=== PATIENT | male | born 1950 | race African-American/Black ===

== ENCOUNTER 2016-09-02 12:52 | Emergency (ER) | payer MEDICARE, OTHER ==
[~2016-09-02] VITALS: Ht 177.8 cm; Wt 99.8 kg
[~2016-09-02 12:52] MED LIST: ADVAIR 100-501 EACH INH; ADVAIR 250-501 EACH INH; ALBUTEROL SULF8.5 GM INH; AMBIEN5 MG ORAL; ANUSOL-HC25 MG RC; ASPIRIN-LOW81 MG PO; AVODART; AZITHROMYCIN600 MG PO; BACTRIM DS TAB1 EAC1 ORAL; BACTRIM-DS1 EA PO; BENTYL10 MG ORAL; BISACODYL10 M1 RC; CARVEDILOL3.125 MG PO; CLOBETASOL EMOL15 GM TP; COLACE100 MG ORAL; COREG6.25 MG ORAL; COZAAR50 MG ORAL; CYCLOBENZAPRINE10 MG ORAL; DIOVAN HCT 1601 EACH PO; DIOVAN160 MG PO; DIPHENOXYLATE-1 EACH PO; DOCUSIL100 M1 PO; DOXAZOSIN MESYLA1 MG ORAL; DURAGESIC1 E3 TD; FLAGYL500 MG ORAL; FLOMAX0.4 MG PO; FONDAPARIN7.5 MG/0.6 SQ; FUROSEMIDE20 M1 ORAL; GABAPENTIN300 MG PO; GABAPENTIN800 MG ORAL; HYDRALAZINE HCL25 M1 ORAL; HYTRIN1 MG PO; IBUPROFEN600 MG ORAL; ISENTRESS400 MG ORAL; ISENTRESS400 MG PO; LEVAQUIN500 MG ORAL; LEXAPRO10 MG PO; LINZESS145 MCG PO; METOPROLOL SUCC50 MG ORAL; MIRALAX17 G2 ORAL; MULTIVITAMINS1 EAC2 PO; NEUPOGEN300 MCG/0. IJ; NEURONTIN300 MG PO; NEXIUM40 MG PO; NORCO 5-325 TA1 EAC1 ORAL; NORCO 5-325 TA1 EACH ORAL; NORVASC10 MG PO; NORVIR100 MG ORAL; NORVIR100 MG PO; NYSTATIN100000 UN1 ORAL; ONDANSETRON ODT4 MG ORAL; POLYSPORIN OI28.3 GM TP; PREZCOBIX 8001 EACH PO; PREZISTA400 MG ORAL; PREZISTA400 MG PO; PREZISTA600 MG PO; PROTONIX40 M2 GT; PROTONIX40 MG ORAL; SEROQUEL200 MG ORAL; SEROQUEL300 MG PO; SUCRALFATE1 GM ORAL; SUCRALFATE1 GM PO; SYMBICORT 1601 PUFFS INH; TAMSULOSIN HCL0.4 MG ORAL; TIVICAY50 MG ORAL; TORADOL30 MG IM; TRAZODONE HCL100 MG ORAL; TRAZODONE HCL100 MG PO; TRUVADA1 TAB ORAL; TRUVADA1 TAB PO; VALTREX1000 MG PO; VANCOMYCIN1 GM/2502 IVPB; VICODIN ES 7.51 EACH PO; ZANTAC150 MG ORAL; ZYLOPRIM300 MG PO
[2016-09-02 13:04] VITALS: BP 148/98
[2016-09-02] MEDS ORDERED: HYDROmorphone 1mg/ml Carpuject IVP ONE ×2 (13:15→15:15)
[2016-09-02 13:38] LABS: MEAN CORPUSCULAR HEMOGLOBIN 30.2 PG (27.0-31.0); MEAN CORPUSCULAR HGB CONC 31.8 G/DL (32.0-36.0); MEAN CORPUSCULAR VOLUME 95 FL (80-99); MEAN PLATELET VOLUME 8.4 FL (6.5-10.1); PLATELET COUNT 51 K/UL (150-450); RED CELL DISTRIBUTION WIDTH 14.3 % (11.6-14.8); WHITE BLOOD COUNT 3.2 K/UL (4.8-10.8)
[2016-09-02 14:08] LABS: ANISOCYTOSIS 1+; BAND NEUTROPHILS % (MANUAL) 0 % (0-8); BASOPHILS % (MANUAL) 1 % (0-2); EOSINOPHILS % (MANUAL) 1 % (0-3); LYMPHOCYTES % (MANUAL) 38 % (20-45); NEUTROPHILS % (MANUAL) 53 % (45-75); PLATELET ESTIMATE DECREASED; TOTAL CELLS COUNTED 100
[2016-09-02 14:09] LABS: PLATELET MORPHOLOGY NORMAL
[2016-09-02] MEDS ORDERED: SULFAMETHOXAZO473 ML ORAL (14:11)
[2016-09-02] MEDS ORDERED: CHLORPROMAZINE25 MG PO (14:11)
[2016-09-02 14:18] LABS: APPEARANCE,URINE CLEAR; KETONES,URINE NEGATIVE (NEGATIVE); LEUKOCYTE ESTERASE ,URINE 1+ (NEGATIVE); NITRITE,URINE NEGATIVE (NEGATIVE); PH,URINE 6 (4.5-8.0); PROTEIN,URINE 3+ (NEGATIVE); UROBILINOGEN,URINE 1 MG/DL (0.0-1.0)
[2016-09-02 14:32] LABS: BACTERIA,URINE FEW /HPF; MUCUS,URINE OCCASIONAL /LPF (NONE/OCC); RBC,URINE 0-2 /HPF (0 - 0); SQUAMOUS EPITHELIAL CELL,UR FEW /LPF (NONE/OCC)
--- NOTE | 2016-09-02 14:35 | Emergency Room Report ---
History of Present Illness General Chief Complaint: Abdominal Pain Source: Patient (SHEY POLLARD M.D.) Present Illness HPI 66-year-old male presents ED complaining of abdominal pain. States having pain for 2 days. States that he fell twice and landed on his abdomen. Notes having history of abdominal pain for 5 years. Does not know why he is having pain. Pain is sharp. 10 out of 10. Diffuse. No other aggravating relieving factors. Notes nausea and vomiting. Denies chest pain or shortness of breath. PMD is Dr. Jackson. Denies any other associated symptoms (SHEY POLLARD M.D.) Allergies: Coded Allergies: No Known Allergies (Verified , 10/03/08) Patient History Past Medical History: HTN, seizures Past Surgical History: none Pertinent Family History: none Social History: Denies: alcohol use, drug use, smoking Immunizations: UTD Reviewed Nursing Documentation: PMH: Agreed, PSxH: Agreed (SHEY POLLARD M.D.) Nursing Documentation-PMH Past Medical History: No History, Except For Hx Cardiac Problems: Yes Hx Hypertension: Yes Hx Asthma: Yes Hx COPD: No Hx Cancer: No Hx Gastrointestinal Problems: Yes Hx Neurological Problems: No Hx Cerebrovascular Accident: No Hx Seizures: Yes Hx Peripheral Neuropathy: Yes (SHEY POLLARD M.D.) Review of Systems All Other Systems: negative except mentioned in HPI (SHEY POLLARD M.D.) Physical Exam Vital Signs Date Time Temp Pulse Resp B/P Pulse Ox O2 Delivery O2 Flow Rate FiO2 09/02/16 12:53 97.7 94 148/120 96 Room Air 09/02/16 13:04 20 Sp02 EP Interpretation: reviewed, normal General Appearance: alert, GCS 15, non-toxic, mild distress Head: normocephalic, atraumatic Eyes: bilateral eye PERRL, bilateral eye normal inspection ENT: hearing grossly normal, normal pharynx, no angioedema, normal voice Neck: full range of motion, supple/symm/no masses Respiratory: chest non-tender, lungs clear, normal breath sounds, speaking full sentences Cardiovascular #1: regular rate, rhythm, no edema Cardiovascular #2: 2+ carotid (R), 2+ carotid (L), 2+ radial (R), 2+ radial (L) , 2+ dorsalis pedis (R), 2+ dorsalis pedis (L) Gastrointestinal: normal bowel sounds, soft, non-distended, no guarding, no rebound, tenderness Rectal: deferred Genitourinary: normal inspection, no CVA tenderness Musculoskeletal: back normal, gait/station normal, normal range of motion, non- tender Neurologic: alert, oriented x3, responsive, motor strength/tone normal, sensory intact, speech normal Psychiatric: judgement/insight normal, memory normal, mood/affect normal, no suicidal/homicidal ideation Reflexes: 3+ bicep (R), 3+ bicep (L), 3+ tricep (R), 3+ tricep (L), 3+ knee (R) , 3+ knee (L) Skin: normal color, no rash, warm/dry, well hydrated Lymphatic: no adenopathy (SHEY POLLARD M.D.) Medical Decision Making Diagnostic Impression: Primary Impression: narcotic seeking behavior Additional Impressions: Abdominal pain Hypertension Qualified Codes: I10 - Essential (primary) hypertension HIV (human immunodeficiency virus infection) ER Course Please see the above note. Patient about to go to CT and requested more pain medicine. Abdomen soft. Dilaudid repeated. Improved. Abd soft. See CT results below. Patient hypertensive. Treated with IV hydralazine and clonidine. BP better. Patient stable for outpatient observation and treatment. Laboratory Tests Test 09/02/16 13:25 09/02/16 14:00 09/02/16 14:25 White Blood Count 3.2 K/UL (4.8-10.8) L Red Blood Count 6.00 M/UL (4.70-6.10) Hemoglobin 18.1 G/DL (14.2-18.0) *H Hematocrit 56.8 % (42.0-52.0) H Mean Corpuscular Volume 95 FL (80-99) Mean Corpuscular Hemoglobin 30.2 PG (27.0-31.0) Mean Corpuscular Hemoglobin Concent 31.8 G/DL (32.0-36.0) L Red Cell Distribution Width 14.3 % (11.6-14.8) Platelet Count 51 K/UL (150-450) L Mean Platelet Volume 8.4 FL (6.5-10.1) Neutrophils (%) (Auto) % (45.0-75.0) Lymphocytes (%) (Auto) % (20.0-45.0) Monocytes (%) (Auto) % (1.0-10.0) Eosinophils (%) (Auto) % (0.0-3.0) Basophils (%) (Auto) % (0.0-2.0) Differential Total Cells Counted 100 Neutrophils % (Manual) 53 % (45-75) Lymphocytes % (Manual) 38 % (20-45) Monocytes % (Manual) 7 % (1-10) Eosinophils % (Manual) 1 % (0-3) Basophils % (Manual) 1 % (0-2) Band Neutrophils 0 % (0-8) Platelet Estimate Decreased L Platelet Morphology Normal Anisocytosis 1+ Urine Color Yellow Urine Appearance Clear Urine pH 6 (4.5-8.0) Urine Specific [place] 1.015 (1.005-1.035) Urine Protein 3+ (NEGATIVE) H Urine Glucose (UA) Negative (NEGATIVE) Urine Ketones Negative (NEGATIVE) Urine Occult Blood Negative (NEGATIVE) Urine Nitrite Negative (NEGATIVE) Urine Bilirubin Negative (NEGATIVE) Urine Urobilinogen 1 MG/DL (0.0-1.0) H Urine Leukocyte Esterase 1+ (NEGATIVE) H Urine RBC 0-2 /HPF (0 - 0) H Urine WBC 2-4 /HPF (0 - 0) Urine Squamous Epithelial Cells Few /LPF (NONE/OCC) Urine Bacteria Few /HPF (NONE) Urine Mucus Occasional /LPF Sodium Level 139 mEQ/L (135-145) Potassium Level 3.6 mEQ/L (3.4-4.9) Chloride Level 97 mEQ/L (98-107) L Carbon Dioxide Level 27 mEQ/L (20-30) Anion Gap 15 (5-15) Blood Urea Nitrogen 8 mg/dL (7-23) Creatinine 1.0 mg/dL (0.7-1.2) Estimate Glomerular Filtration Rate > 60 mL/min (>60) Glucose Level 109 mg/dL (74-106) H Calcium Level 8.6 mg/dL (8.6-10.2) Total Bilirubin 0.6 mg/dL (0.0-1.2) Aspartate Amino Transferase (AST) 19 U/L (5-40) Alanine Aminotransferase (ALT) 15 U/L (3-41) Alkaline Phosphatase 69 U/L (40-129) Total Protein 6.3 g/dL (6.6-8.7) L Albumin 3.5 g/dL (3.5-5.2) Globulin 2.8 g/dL Albumin/Globulin Ratio 1.2 (1.0-2.7) Lipase 25 U/L (< 60) (Wesley Reis M.D.) CT/MRI/US Diagnostic Results CT/MRI/US Diagnostic Results : Imaging Test Ordered: CT abdomen and pelivs Impression Impression: No acute abnormality demonstrated 15 mm left lower lobe lung mass. This is identical in size to the prior study of 12/26/2015, earlier studies from [id number] demonstrate some growth. Therefore, continued monitoring of this at short intervals is still recommended Borderline splenomegaly, also previously reported Postsurgical changes, including prior cholecystectomy, anterior abdominal wall hernia repair Thickwalled cyst within the perineum anterior to the anus, also previously reported and unchanged Other findings as noted, including colonic diverticulosis, bilateral renal cysts (Wesley Reis M.D.) Last Vital Signs Date Time Temp Pulse Resp B/P Pulse Ox O2 Delivery O2 Flow Rate FiO2 09/02/16 13:04 97.7 88 20 148/98 96 Room Air (SHEY POLLARD M.D.) Last Vital Signs Date Time Temp Pulse Resp B/P Pulse Ox O2 Delivery O2 Flow Rate FiO2 09/02/16 17:46 97.5 89 20 138/89 98 Room Air Status: improved (Wesley Reis M.D.) Disposition: HOME, SELF-CARE Condition: Improved Referrals: NOT CHOSEN DON/,REFERRING (PCP) SHEY POLLARD M.D. Sep 02, 2016 14:35 Wesley Reis M.D. Sep 02, 2016 15:08
[2016-09-02 14:55] LABS: ALANINE AMINOTRANSFERASE 15 U/L (3-41); ALBUMIN/GLOBULIN RATIO 1.2 (1.0-2.7); ANION GAP 15 (5-15); ASPARTATE AMINO TRANSFERASE 19 U/L (5-40); CALCIUM 8.6 mg/dL (8.6-10.2); CARBON DIOXIDE 27 mEQ/L (20-30); CHLORIDE 97 mEQ/L (98-107); GLOMERULAR FILTRATION RATE > 60 mL/min (>60); HEMOLYSIS 16; LIPASE 25 U/L (< 60); POTASSIUM 3.6 mEQ/L (3.4-4.9); SODIUM 139 mEQ/L (135-145); TOTAL PROTEIN 6.3 g/dL (6.6-8.7)
[2016-09-02 15:25] VITALS: BP 168/125
--- NOTE | 2016-09-02 16:12 | Diagnostic Imaging Report ---
Clinical Indication: Abdominal pain Technique: No oral contrast utilized, per emergency room physician request IV administration nonionic contrast. Venous phase spiral acquisition obtained through the abdomen and pelvis. Multiplanar reconstructions were generated. Total dose length product 1108 mGycm. CTDIvol(s) 19 mGy Comparison: 12/26/2015 Findings: Normal appendix. There is colonic diverticulosis. No evidence of diverticulitis. No small bowel distention. Distal esophagus, stomach, duodenum are unremarkable. There is again demonstrated evidence of prior anterior abdominal wall hernia mesh repair with fixation anchors in place. There is diastases of the rectus abdominis tendon. No free or loculated intraperitoneal air or fluid. There is evidence of prior cholecystectomy. No focal hepatic abnormality. No evidence of biliary ductal dilatation. The pancreas is unremarkable. The spleen is borderline enlarged, measuring 13.3 cm long axis dimension. There are 2 accessory splenules incidentally noted. The adrenals are unremarkable. The right kidney demonstrates a 1 cm interpolar region cyst, also evident previously. The left kidney demonstrates a 2 cm interpolar region cyst, also evident previously. No renal or ureteral calculi, hydronephrosis, or hydroureter. The bladder is unremarkable. Seminal vesicles and prostate are unremarkable. No pelvic mass or adenopathy. A cyst with a somewhat thick wall is seen in the perineum anterior to the anus. This measures 3.8 x 3.8 cm, was evident previously and is unchanged in size. Again demonstrated is a well-circumscribed 15 mm mass in the posteromedial left lower lobe abutting the pleural surface. This is unchanged in size and appearance from the prior study. The included lung bases are otherwise clear. There is degenerative lumbar spondylosis. Impression: No acute abnormality demonstrated 15 mm left lower lobe lung mass. This is identical in size to the prior study of 12/26/2015, earlier studies from [id number] demonstrate some growth. Therefore, continued monitoring of this at short intervals is still recommended Borderline splenomegaly, also previously reported Postsurgical changes, including prior cholecystectomy, anterior abdominal wall hernia repair Thickwalled cyst within the perineum anterior to the anus, also previously reported and unchanged Other findings as noted, including colonic diverticulosis, bilateral renal cysts The CT scanner at [facility] is accredited by the [employer] and the scans are performed using protocols designed to limit radiation exposure to as low as reasonably achievable to attain images of sufficient resolution adequate for diagnostic evaluation.
[2016-09-02 17:46] VITALS: BP 138/89
== END 2016-09-02 17:47 | disposition home or self-care (01) ==
LOC: EDBD 12:52 → EMR 13:35
DX: Z76.5 Malingerer [conscious simulation] (principal); R10.9 Unspecified abdominal pain; I10 Essential (primary) hypertension; B20 Human immunodeficiency virus [HIV] disease; K57.30 Diverticulosis of large intestine without perforation or abscess without bleeding; J45.909 Unspecified asthma, uncomplicated; N28.1 Cyst of kidney, acquired; R91.8 Other nonspecific abnormal finding of lung field; Z90.49 Acquired absence of other specified parts of digestive tract
CPT/HCPCS: 36415; 74177; 80053; 81003; 83690; 85007; 85025; 96374; 96375; 99284; J0360; J1170; J2405; J7040; Q9967

== ENCOUNTER 2016-11-07 20:03 | Emergency (ER) | payer MEDICARE, OTHER ==
[~2016-11-07] VITALS: Ht 177.8 cm; Wt 97.1 kg
[~2016-11-07 20:03] MED LIST changes: +CHLORPROMAZINE25 MG PO; +SULFAMETHOXAZO473 ML ORAL
[2016-11-07 20:05] VITALS: BP 162/114
[2016-11-07] MEDS ORDERED: Dicyclomine HCl 10mg/5ml oral soln ORAL ONE (20:30)
[2016-11-07] MEDS ORDERED: Famotidine 20 MG/ 2ML VIAL IVP ONE (20:30)
[2016-11-07 20:52] LABS: BASOPHILS % (AUTO) 2.3 % (0.0-2.0); EOSINOPHILS % (AUTO) 0.1 % (0.0-3.0); MEAN CORPUSCULAR HEMOGLOBIN 32.2 PG (27.0-31.0); MEAN CORPUSCULAR HGB CONC 32.3 G/DL (32.0-36.0); MEAN CORPUSCULAR VOLUME 100 FL (80-99); MEAN PLATELET VOLUME 7.6 FL (6.5-10.1); MONOCYTES % (AUTO) 14.2 % (1.0-10.0); NEUTROPHILS % (AUTO) 48.5 % (45.0-75.0); PLATELET COUNT 115 K/UL (150-450); RED BLOOD COUNT 6.12 M/UL (4.70-6.10); WHITE BLOOD COUNT 4.3 K/UL (4.8-10.8)
[2016-11-07] MEDS ORDERED: Morphine Sulfate 4mg/ml Inj IVP ONE (21:15)
[2016-11-07 21:16] LABS: TROPONIN I < 0.30 ng/mL (<=0.30)
[2016-11-07 21:17] LABS: ALANINE AMINOTRANSFERASE 10 U/L (3-41); ALBUMIN/GLOBULIN RATIO 1.2 (1.0-2.7); ANION GAP 18 (5-15); ASPARTATE AMINO TRANSFERASE 23 U/L (5-40); CALCIUM 9.3 mg/dL (8.6-10.2); CARBON DIOXIDE 27 mEQ/L (20-30); CHLORIDE 94 mEQ/L (98-107); CREATININE 1.2 mg/dL (0.7-1.2); GLOMERULAR FILTRATION RATE > 60 mL/min (>60); HEMOLYSIS 21; LIPASE 11 U/L (< 60); POTASSIUM 4.1 mEQ/L (3.4-4.9); SODIUM 139 mEQ/L (135-145); TOTAL PROTEIN 7.7 g/dL (6.6-8.7)
[2016-11-07] MEDS ORDERED: LACTULOSE20 GM/301 ORAL (21:20)
--- NOTE | 2016-11-07 21:24 | Emergency Room Report ---
History of Present Illness General Chief Complaint: Abdominal Pain Source: Patient, EMS Present Illness HPI Patient is a 66-year-old male presented after increased generalized abdominal pain constipation. Patient prior history of similar type pain. Patient gradual onset of symptoms with the past 6 days. Patient reports not having any regular bowel movement few days however he does admit to having small bowel movements. The patient been taking narcotic pain medication for chronic abdominal pain as well as multiple medical issues. The patient is being followed by pain management at [facility]. Allergies: Coded Allergies: No Known Allergies (Verified , 10/03/08) Patient History Past Medical History: see triage record Reviewed Nursing Documentation: PMH: Agreed, PSxH: Agreed Nursing Documentation-PMH Past Medical History: No Stated History Hx Cardiac Problems: Yes Hx Hypertension: Yes Hx Asthma: Yes Hx COPD: No Hx Cancer: No Hx Gastrointestinal Problems: Yes Hx Neurological Problems: No Hx Cerebrovascular Accident: No Hx Seizures: Yes Hx Peripheral Neuropathy: Yes Review of Systems All Other Systems: negative except mentioned in HPI Physical Exam Vital Signs Date Time Temp Pulse Resp B/P Pulse Ox O2 Delivery O2 Flow Rate FiO2 11/07/16 19:58 98.2 105 18 162/114 99 Room Air Sp02 EP Interpretation: reviewed, normal General Appearance: normal inspection, well appearing, no apparent distress, alert, GCS 15 Head: atraumatic ENT: normal ENT inspection, hearing grossly normal, normal voice Neck: normal inspection, full range of motion, supple, no bony tend Respiratory: normal inspection, lungs clear, normal breath sounds, no respiratory distress, no retraction, no wheezing Cardiovascular #1: regular rate, rhythm, no edema Gastrointestinal: normal inspection, normal bowel sounds, non tender, soft, no guarding, no hernia, other - diastasis rectus Genitourinary: no CVA tenderness Musculoskeletal: normal inspection, back normal, normal range of motion, swelling - bilateral lower extremity Neurologic: normal inspection, alert, oriented x3, responsive, speech normal, other - tremor Psychiatric: normal inspection, judgement/insight normal, mood/affect normal Skin: normal inspection, normal color, no rash Medical Decision Making Diagnostic Impression: Primary Impression: Abdominal pain Additional Impression: Constipation ER Course Patient presented for abdominal pain. Differential diagnoses included ischemic bowel, appendicitis, perforated viscus, abdominal aortic aneurysm, inferior myocardial infarction, viral gastroenteritis Because of complexity of patient's case laboratory testing and imaging studies were ordered. The patient was given IV pain medications. A KUB one view interpreted by me showed normal bowel gas pattern without obstruction. The patient appears to have a chronic pain and had this appears to be similar to his prior episodes. The patient was given prescription for lactulose. Is advised followup with his primary care physician for further evaluation. Labs Test 11/07/16 20:35 White Blood Count 4.3 K/UL (4.8-10.8) Red Blood Count 6.12 M/UL (4.70-6.10) Hemoglobin 19.7 G/DL (14.2-18.0) Hematocrit 61.1 % (42.0-52.0) Mean Corpuscular Volume 100 FL (80-99) Mean Corpuscular Hemoglobin 32.2 PG (27.0-31.0) Mean Corpuscular Hemoglobin Concent 32.3 G/DL (32.0-36.0) Red Cell Distribution Width 16.0 % (11.6-14.8) Platelet Count 115 K/UL (150-450) Mean Platelet Volume 7.6 FL (6.5-10.1) Neutrophils (%) (Auto) 48.5 % (45.0-75.0) Lymphocytes (%) (Auto) 35.0 % (20.0-45.0) Monocytes (%) (Auto) 14.2 % (1.0-10.0) Eosinophils (%) (Auto) 0.1 % (0.0-3.0) Basophils (%) (Auto) 2.3 % (0.0-2.0) Last Vital Signs Date Time Temp Pulse Resp B/P Pulse Ox O2 Delivery O2 Flow Rate FiO2 11/07/16 20:05 98.2 105 18 162/114 99 Room Air Status: improved Disposition: HOME, SELF-CARE Condition: Stable Scripts Lactulose (LACTULOSE*) 20 Gm/30 Ml Solution 15 ML ORAL DAILY for Constipation, #100 ML 0 Refills Prov: Wes Celestin 11/07/16 Referrals: NOT CHOSEN IPA/,REFERRING (PCP) Patient Instructions: Abdominal Pain, Adult FawadWes Nov 07, 2016 21:23
[2016-11-07 22:05] VITALS: BP 159/105
[2016-11-07] MEDS ORDERED: Lactulose 20gm/30ml UDC ORAL ONE (22:30)
[2016-11-07 23:00] VITALS: BP 154/100
--- NOTE | 2016-11-08 13:51 | Diagnostic Imaging Report ---
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 Hernia mesh anchor hardware is again demonstrated. Unusual masses or calcifications. Atelectasis or scarring is seen at the right lung base. There are cholecystectomy clips. Impression: No acute process Post surgical changes, as described
--- NOTE | 2016-11-09 08:15 | Cardiology Report ---
APPROVED REPORT EKG Measurement Heart [id number] Normal sinus rhythm Left axis deviation Moderate voltage criteria for LVH, may be normal variant Abnormal ECG
== END 2016-11-07 23:00 | disposition home or self-care (01) ==
LOC: EDBD 20:03 → EMR 20:33
DX: R10.9 Unspecified abdominal pain (principal); K59.00 Constipation, unspecified; I10 Essential (primary) hypertension; J45.909 Unspecified asthma, uncomplicated
CPT/HCPCS: 36415; 74000; 80053; 83690; 84484; 85025; 93005; 96374; 96375; 99284; J2270; J2405; S0028

== ENCOUNTER 2016-11-10 17:47 | Emergency (ER) | payer MEDICARE, OTHER ==
[~2016-11-10] VITALS: Ht 177.8 cm; Wt 97.5 kg
[~2016-11-10 17:47] MED LIST changes: +LACTULOSE20 GM/301 ORAL
[2016-11-10] MEDS ORDERED: Morphine Sulfate 4mg/ml Inj IM ONE (18:15)
[2016-11-10] MEDS ORDERED: LORazepam Inj 2mg/ml 1ml IM ONE ×2 (18:15→19:30)
[2016-11-10 18:50] VITALS: BP 145/66
[2016-11-10] MEDS ORDERED: XANAX0.5 MG ORAL (20:49)
[2016-11-10 20:50] VITALS: BP 148/68
[2016-11-10 21:50] VITALS: BP 142/65
--- NOTE | 2016-11-12 21:27 | Emergency Room Report ---
History of Present Illness General Chief Complaint: Abdominal Pain Source: Patient, EMS Present Illness HPI 66-year-old male presents to ED for evaluation of abdominal pain. Patient has chronic history of abdominal pain. Has been here multiple times in the past. [place] [facility] [place] a DO NOT ADMIT list. patient states pain is a 10 out of 10, throbbing, nonradiating. No different from his standard abdominal pain. Patient states he also feels very anxious. Notes history of anxiety. Has currently been prescribed Ativan but states it is not helping. PMD is Dr. Jackson. No other aggravating or relieving factors. Denies any other associated symptoms Allergies: Coded Allergies: No Known Allergies (Verified , 10/03/08) Patient History Past Medical History: HTN, seizures Pertinent Family History: none Social History: Denies: alcohol use, drug use, smoking Immunizations: UTD Reviewed Nursing Documentation: PMH: Agreed, PSxH: Agreed Nursing Documentation-PMH Past Medical History: No History, Except For Hx Hypertension: Yes Hx Asthma: Yes Hx COPD: No Hx Cancer: No Hx Gastrointestinal Problems: Yes Hx Neurological Problems: No Hx Cerebrovascular Accident: No Hx Seizures: Yes Hx Peripheral Neuropathy: Yes Review of Systems All Other Systems: negative except mentioned in HPI Physical Exam Vital Signs Date Time Temp Pulse Resp B/P Pulse Ox O2 Delivery O2 Flow Rate FiO2 11/10/16 17:43 98.6 82 18 112/67 98 11/10/16 18:50 Room Air Sp02 EP Interpretation: reviewed, normal General Appearance: alert, GCS 15, non-toxic, mild distress Head: normocephalic Eyes: bilateral eye PERRL, bilateral eye normal inspection ENT: normal ENT inspection Neck: normal inspection Respiratory: chest non-tender, lungs clear, normal breath sounds, speaking full sentences Cardiovascular #1: regular rate, rhythm, no edema Gastrointestinal: normal bowel sounds, soft, non-distended, no guarding, no rebound, tenderness Rectal: deferred Genitourinary: no CVA tenderness Musculoskeletal: normal inspection Neurologic: alert, oriented x3, responsive, motor strength/tone normal, sensory intact, speech normal Psychiatric: normal inspection Skin: normal inspection Lymphatic: normal inspection Medical Decision Making Diagnostic Impression: Primary Impression: narcotic seeking behavior Additional Impressions: Chronic pain Anxiety ER Course 66-year-old male presents ED for abdominal pain, anxiety. h/o chronic pain Differential-constipation, chronic pain, opioid dependence Patient placed on stretcher. After initial history physical exam reveals an elderly male in mild distress. Patient feels very anxious. Hands are tremulous. Patient abdomen soft patient claims pain. Vital stable. I reviewed EMR patient was seen here few days prior for similar presentation. Patient had labs which are negative. KUB which showed diffuse constipation. Patient was given pain medications and subsequently discharged I see no reason to repeat imaging or labs at this time. Patient given IM doses of pain medication. Is requesting Dilaudid. I stayed likely provide him with morphine at best. Also given Ativan for anxiety Reassessment pain in symptoms improved. Patient agrees to be discharged at this time Diagnoses-narcotic seeking behavior, chronic pain, anxiety Stable and discharged to home. given prescription for Xanax Followup with PMD. Return to ED if symptoms recur or worsen Last Vital Signs Date Time Temp Pulse Resp B/P Pulse Ox O2 Delivery O2 Flow Rate FiO2 11/10/16 21:50 98.0 77 17 142/65 94 Room Air Status: improved Disposition: HOME, SELF-CARE Condition: Stable Scripts Alprazolam* (XANAX*) 0.5 Mg Tablet 0.5 MG ORAL THREE TIMES A DAY for anxiety, #20 TAB 0 Refills Prov: SHEY POLLARD M.D. 11/10/16 Referrals: FABI BAUMAN (PCP) Patient Instructions: Abdominal Pain, Adult SHEY POLLARD M.D. November 12, 2016 21:27
== END 2016-11-10 21:50 | disposition home or self-care (01) ==
LOC: EDBD 17:47 → EMR 19:00
DX: Z76.5 Malingerer [conscious simulation] (principal); G89.29 Other chronic pain; F41.9 Anxiety disorder, unspecified; I10 Essential (primary) hypertension; J45.909 Unspecified asthma, uncomplicated; G62.9 Polyneuropathy, unspecified
CPT/HCPCS: 96372; 99283; J2270

== ENCOUNTER 2016-11-12 14:14 | Emergency (ER) | payer MEDICARE, OTHER ==
[~2016-11-12] VITALS: Ht 172.7 cm; Wt 81.6 kg
[~2016-11-12 14:14] MED LIST changes: +XANAX0.5 MG ORAL
[2016-11-12 14:20] VITALS: BP 142/98
[2016-11-12] MEDS ORDERED: Oxycodone/Acetaminophen 5-325 ORAL ONE (14:45)
[2016-11-12] MEDS ORDERED: LORazepam 0.5mg tab ORAL ONE (14:45)
--- NOTE | 2016-11-12 15:12 | Emergency Room Report ---
History of Present Illness General Chief Complaint: Abdominal Pain Source: Patient Present Illness HPI The patient presents not feeling well. He has abdominal pain which is chronic and slightly worsened today 10/10, generalized, not radiating, pressure. Also he has weakness. He's been vomiting. He is urinating well and denies dysuria. He has been able to move his bowels without difficulty. He is states he was seen here last night. He is requesting to get Dilaudid. Complaining of tremor in R hand. Chronic problem. Patient HIV + on meds. Allergies: Coded Allergies: No Known Allergies (Verified , 10/03/08) Patient History Past Medical History: see triage record Social History: Reports: alcohol use - prior Social History Narrative at home Reviewed Nursing Documentation: PMH: Agreed, PSxH: Agreed Nursing Documentation-PMH Hx Cardiac Problems: No Hx Hypertension: Yes Hx Pacemaker: No Hx Asthma: No Hx COPD: No Hx Diabetes: No Hx Cancer: No Hx Gastrointestinal Problems: No Hx Dialysis: No History Of Psychiatric Problem: Yes - hiv Hx Neurological Problems: No Hx Cerebrovascular Accident: No Hx Seizures: No Hx Peripheral Neuropathy: Yes Review of Systems All Other Systems: negative except mentioned in HPI Physical Exam Vital Signs Date Time Temp Pulse Resp B/P Pulse Ox O2 Delivery O2 Flow Rate FiO2 11/12/16 14:10 97.3 84 18 130/60 98 11/12/16 14:20 Room Air Sp02 EP Interpretation: reviewed, normal General Appearance: well appearing, no apparent distress, GCS 15, obese Head: normocephalic Eyes: bilateral eye PERRL, bilateral eye normal inspection ENT: moist mucus membranes Neck: supple Respiratory: lungs clear, normal breath sounds Cardiovascular #1: regular rate, rhythm Cardiovascular #2: 2+ radial (R) Gastrointestinal: normal inspection, normal bowel sounds, no mass, non- distended, no guarding, no rebound, tenderness, overweight Musculoskeletal: back normal, gait/station normal, normal range of motion Neurologic: alert, oriented x3, grossly normal - except with some tremor R hand and R facial weakness (chronic) Psychiatric: depressed affect, other - manipulative and argumentative Skin: normal inspection, warm/dry Medical Decision Making Diagnostic Impression: Primary Impression: Abdominal pain Additional Impressions: Voluntary tremor HIV (human immunodeficiency virus infection) Chronic pain AMA Narcotic seeking behavior ER Course The patient presents not feeling well. He is complaining of abdominal pain and weakness. Differential includes exacerbation of chronic pain, anxiety, electrolyte abnormalities, occult infection, opiate seeking behavior amongst others. Evaluation of these with labs. In addition to that he'll be given Zofran and by mouth medications to treat pain and anxiety. Patient was treated with analgesics, Zofran and some Ativan. He is markedly improved but still is requesting medication for shaking. He only was observed shaking when he was requesting more medication. He also is insisting on getting IM treatments. He was markedly improved and was able to tolerate all his medications by mouth without difficulty. The patient refused to stay to discuss the risks of his leaving. Labs return after he left. They are unremarkable. Laboratory Tests Test 11/12/16 14:35 11/12/16 15:30 Urine Color Pale yellow Urine Appearance Clear Urine pH 7 (4.5-8.0) Urine Specific [place] 1.000 (1.005-1.035) Urine Protein Negative (NEGATIVE) Urine Glucose (UA) Negative (NEGATIVE) Urine Ketones Negative (NEGATIVE) Urine Occult Blood Negative (NEGATIVE) Urine Nitrite Negative (NEGATIVE) Urine Bilirubin Negative (NEGATIVE) Urine Urobilinogen Normal MG/DL (0.0-1.0) Urine Leukocyte Esterase Negative (NEGATIVE) Urine Opiates Screen Negative (NEGATIVE) Urine Barbiturates Screen Negative (NEGATIVE) Phencyclidine (PCP) Screen Negative (NEGATIVE) Urine Amphetamines Screen Negative (NEGATIVE) Urine Benzodiazepines Screen Negative (NEGATIVE) Urine Cocaine Screen Negative (NEGATIVE) Urine Marijuana (THC) Screen Negative (NEGATIVE) White Blood Count 4.5 K/UL (4.8-10.8) L Red Blood Count 5.80 M/UL (4.70-6.10) Hemoglobin 17.3 G/DL (14.2-18.0) Hematocrit 55.6 % (42.0-52.0) H Mean Corpuscular Volume 96 FL (80-99) Mean Corpuscular Hemoglobin 29.7 PG (27.0-31.0) Mean Corpuscular Hemoglobin Concent 31.1 G/DL (32.0-36.0) L Red Cell Distribution Width 15.5 % (11.6-14.8) H Platelet Count 121 K/UL (150-450) L Mean Platelet Volume 7.3 FL (6.5-10.1) Neutrophils (%) (Auto) 41.6 % (45.0-75.0) L Lymphocytes (%) (Auto) 38.2 % (20.0-45.0) Monocytes (%) (Auto) 16.7 % (1.0-10.0) H Eosinophils (%) (Auto) 1.3 % (0.0-3.0) Basophils (%) (Auto) 2.3 % (0.0-2.0) H Sodium Level 143 mEQ/L (135-145) Potassium Level 4.1 mEQ/L (3.4-4.9) Chloride Level 99 mEQ/L (98-107) Carbon Dioxide Level 28 mEQ/L (20-30) Anion Gap 16 (5-15) H Blood Urea Nitrogen 9 mg/dL (7-23) Creatinine 0.9 mg/dL (0.7-1.2) Estimate Glomerular Filtration Rate > 60 mL/min (>60) Glucose Level 98 mg/dL (74-106) Calcium Level 8.8 mg/dL (8.6-10.2) Total Bilirubin 0.4 mg/dL (0.0-1.2) Aspartate Amino Transferase (AST) 19 U/L (5-40) Alanine Aminotransferase (ALT) 12 U/L (3-41) Alkaline Phosphatase 85 U/L (40-129) Troponin I < 0.30 ng/mL (<=0.30) Total Protein 6.5 g/dL (6.6-8.7) L Albumin 3.9 g/dL (3.5-5.2) Globulin 2.6 g/dL Albumin/Globulin Ratio 1.5 (1.0-2.7) Lipase 23 U/L (< 60) EKG Diagnostic Results Rate: normal Rhythm: NSR ST Segments: no acute changes Rhythm Strip Diag. Results EP Interpretation: yes Rhythm: NSR, no PVC's, no ectopy Last Vital Signs Date Time Temp Pulse Resp B/P Pulse Ox O2 Delivery O2 Flow Rate FiO2 11/12/16 14:20 90 16 142/98 95 Room Air 11/12/16 14:10 97.3 Status: improved Disposition: AGAINST MEDICAL ADVICE Condition: Stable Referrals: NOT CHOSEN IPA/,REFERRING (PCP) Wesley Reis M.D. November 12, 2016 15:12
[2016-11-12 15:31] LABS: APPEARANCE,URINE CLEAR; KETONES,URINE NEGATIVE (NEGATIVE); LEUKOCYTE ESTERASE ,URINE NEGATIVE (NEGATIVE); NITRITE,URINE NEGATIVE (NEGATIVE); PH,URINE 7 (4.5-8.0); PROTEIN,URINE NEGATIVE (NEGATIVE); UROBILINOGEN,URINE NORMAL MG/DL (0.0-1.0)
[2016-11-12 15:44] LABS: BASOPHILS % (AUTO) 2.3 % (0.0-2.0); EOSINOPHILS % (AUTO) 1.3 % (0.0-3.0); LYMPHOCYTES % (AUTO) 38.2 % (20.0-45.0); MEAN CORPUSCULAR HEMOGLOBIN 29.7 PG (27.0-31.0); MEAN CORPUSCULAR HGB CONC 31.1 G/DL (32.0-36.0); MEAN CORPUSCULAR VOLUME 96 FL (80-99); MEAN PLATELET VOLUME 7.3 FL (6.5-10.1); MONOCYTES % (AUTO) 16.7 % (1.0-10.0); NEUTROPHILS % (AUTO) 41.6 % (45.0-75.0); PLATELET COUNT 121 K/UL (150-450); RED CELL DISTRIBUTION WIDTH 15.5 % (11.6-14.8); WHITE BLOOD COUNT 4.5 K/UL (4.8-10.8)
[2016-11-12 15:46] VITALS: BP 131/89
[2016-11-12 16:02] LABS: ALANINE AMINOTRANSFERASE 12 U/L (3-41); ALBUMIN/GLOBULIN RATIO 1.5 (1.0-2.7); ANION GAP 16 (5-15); ASPARTATE AMINO TRANSFERASE 19 U/L (5-40); CALCIUM 8.8 mg/dL (8.6-10.2); CARBON DIOXIDE 28 mEQ/L (20-30); CHLORIDE 99 mEQ/L (98-107); CREATININE 0.9 mg/dL (0.7-1.2); GLOMERULAR FILTRATION RATE > 60 mL/min (>60); HEMOLYSIS 0; LIPASE 23 U/L (< 60); POTASSIUM 4.1 mEQ/L (3.4-4.9); SODIUM 143 mEQ/L (135-145); TOTAL PROTEIN 6.5 g/dL (6.6-8.7)
[2016-11-12 16:06] VITALS: BP 131/89
[2016-11-12 17:37] LABS: TROPONIN I < 0.30 ng/mL (<=0.30)
--- NOTE | 2016-11-13 17:33 | Cardiology Report ---
APPROVED REPORT EKG Measurement Heart [id number] Normal sinus rhythm Left axis deviation Abnormal ECG
== END 2016-11-12 16:40 | disposition left against medical advice (07) ==
LOC: EDBD 14:14 → EMR 14:44
DX: R10.9 Unspecified abdominal pain (principal); R53.1 Weakness; R25.1 Tremor, unspecified; G89.29 Other chronic pain; Z76.5 Malingerer [conscious simulation]; R11.10 Vomiting, unspecified; I10 Essential (primary) hypertension; G62.9 Polyneuropathy, unspecified; F99 Mental disorder, not otherwise specified; F10.20 Alcohol dependence, uncomplicated; Z53.21 Procedure and treatment not carried out due to patient leaving prior to being seen by health care provider
CPT/HCPCS: 36415; 80053; 80300; 81003; 83690; 84484; 85025; 93005; 99283

== ENCOUNTER 2016-11-14 11:22 | Emergency (ER) | payer MEDICARE, OTHER ==
[~2016-11-14] VITALS: Ht 177.8 cm; Wt 97.5 kg
[2016-11-14] MEDS ORDERED: LORazepam Inj 2mg/ml 1ml IM ONE (11:45)
[2016-11-14 12:21] VITALS: BP 167/98
[2016-11-14 12:23] VITALS: BP 167/98
--- NOTE | 2016-11-19 06:42 | Emergency Room Report ---
History of Present Illness General Chief Complaint: General Complaint Source: Patient, Medical Record Present Illness HPI Patient present with complaints that he feels shaky Patient reports that he has diffuse body pain Denies any headache or neck pain Denies any visual changes Denies any chest pain Patient has had recent presentation with some similar complaints However today feels more shaky than before Denies any diarrhea denies any fevers or chills Denies any fall or trauma Patient was brought here by his roommate Allergies: Coded Allergies: No Known Allergies (Verified , 10/03/08) Patient History Past Medical History: see triage record, HIV Pertinent Family History: none Reviewed Nursing Documentation: PMH: Agreed, PSxH: Agreed Nursing Documentation-PMH Past Medical History: No History, Except For Hx Cardiac Problems: No - HIV Hx Hypertension: Yes Hx Pacemaker: No Hx Asthma: No Hx COPD: No Hx Diabetes: No Hx Cancer: No Hx Gastrointestinal Problems: No Hx Dialysis: No Hx Neurological Problems: No Hx Cerebrovascular Accident: No Hx Seizures: No Hx Peripheral Neuropathy: Yes Review of Systems All Other Systems: negative except mentioned in HPI Physical Exam Vital Signs Date Time Temp Pulse Resp B/P Pulse Ox O2 Delivery O2 Flow Rate FiO2 11/14/16 11:27 98.4 92 16 167/98 98 Room Air Sp02 EP Interpretation: reviewed, normal General Appearance: no apparent distress Head: normocephalic, atraumatic Eyes: bilateral eye EOMI, bilateral eye PERRL ENT: normal pharynx Neck: full range of motion, supple Respiratory: lungs clear Cardiovascular #1: regular rate, rhythm Gastrointestinal: non tender, soft Musculoskeletal: normal inspection Neurologic: alert, oriented x3, responsive Skin: normal color, no rash Lymphatic: no adenopathy Medical Decision Making Diagnostic Impression: Primary Impression: medical evaluation ER Course Multiple differentials are considered Including but not limited to, metabolic, infectious, cardio, cardiopulmonary pathology Patient has had fairly extensive blood work done recently Therefore this was not repeated Patient receives multiple medications by outside physician including Shahnaz With the current medical evaluation patient remains hemodynamically stable Patient appear mildly anxious and was given Ativan for that Patient appears require significant input regarding pain control he does have pain management I feel requires better outpatient followup Last Vital Signs Date Time Temp Pulse Resp B/P Pulse Ox O2 Delivery O2 Flow Rate FiO2 11/14/16 12:23 98.4 16 167/98 98 Room Air 11/14/16 11:27 92 Status: improved Disposition: HOME, SELF-CARE Condition: Stable Referrals: JONATHAN DUNAWAY (PCP) Patient Instructions: Medical Screening Exam Additional Instructions: Patient is provided with the discharge instructions notified to follow up with primary doctor in the next 2-3 days otherwise return to the er with any worsening symptoms. Please note that this report is being documented using DRAGON technology. This can lead to erroneous entry secondary to incorrect interpretation by the dictating instrument. CATALINO LAUREN D.O. November 19, 2016 06:42
== END 2016-11-14 12:26 | disposition home or self-care (01) ==
LOC: EMR 11:45
DX: R52 Pain, unspecified (principal); I10 Essential (primary) hypertension; G62.9 Polyneuropathy, unspecified
CPT/HCPCS: 96372; 99283